=== PATIENT | male | born 1955 | race Caucasian/White ===

== ENCOUNTER 2020-07-26 08:11 | Emergency (ER) | payer OTHER ==
[2020-07-26 08:19] VITALS: BP 135/85; PULSE 108; TEMP 98.1; BMI 27.3
[2020-07-26] MEDS ORDERED: KETOROLAC TROMETHAMINE 30 MG/1 ML VIAL IM ONE (08:36)
[2020-07-26] MEDS ORDERED: KETOROLAC TROMETHAMINE 30 MG/1 ML VIAL ONE (08:44)
== END 2020-07-26 09:17 | disposition home or self-care (01) ==
LOC: JER 08:11
PROC: 3E0233Z Introduction of Anti-inflammatory into Muscle, Percutaneous Approach (ICD-10-PCS; principal; 2020-07-26)
DX: S46.119A Strain of muscle, fascia and tendon of long head of biceps, unspecified arm, initial encounter (principal)
CPT/HCPCS: 99284-25